=== PATIENT | male | born 1990 | race Caucasian/White ===

== ENCOUNTER 2018-11-13 19:29 | Emergency (ER) | payer SELFPAY ==
[~2018-11-13] VITALS: Ht 180.3 cm; Wt 75.0 kg
--- NOTE | 2018-11-13 19:52 | NUR ---
Pt brought to room 39, c/o generalized malaise thodat, "I think I have heat stroke". Reports feeling "hot" this afternoon while working, also states "I dont drink much water". Pt denies emesis, mild nausea earlier this afternoon, alert, oriented, no s/sx of confusion or weakness noted. Took a "hot shower" at 1830 today in an attempt to drain "wound on my right buttock". Red closed abcess noted to, firm, hot and ntender to palpation. Unable to recal when it first started or how it developed, worsening pain today, denies drainage.
[2018-11-13 20:22] LABS: BASOPHILS # (AUTO) 0.16 x10^3/uL (0-0.1); BASOPHILS % (AUTO) 1 % (0-1); EOSINOPHILS # (AUTO) 0.17 x10^3/uL (0-0.4); EOSINOPHILS % (AUTO) 1 % (1-7); LYMPHOCYTES # (AUTO) 2.24 x10^3/uL (1-3.4); LYMPHOCYTES % (AUTO) 13 % (22-44); MD NO; MEAN PLATELET VOLUME 9.1 fL (7.4-10.4); MONOCYTES % (AUTO) 8 % (2-9); NEUTROPHILS # (AUTO) 13.41 x10^3/uL (1.8-6.8); NEUTROPHILS % (AUTO) 78 % (42-75); PLATELET COUNT 271 x10^3/uL (130-400)
[2018-11-13 20:34] LABS: ALBUMIN 4.1 g/dL (3.4-5.0); ANION GAP 6 mmol/L (5-15); CALCIUM 9.1 mg/dL (8.5-10.1); CHLORIDE 108 mmol/L (98-107)
[2018-11-13 20:39] LABS: ALANINE AMINOTRANSFERASE 26 U/L (12-78); ALKALINE PHOSPHATASE 97 U/L (45-117); BILIRUBIN,TOTAL 0.5 mg/dL (0.2-1.0); TOTAL PROTEIN 7.7 g/dL (6.4-8.2)
--- NOTE | 2018-11-13 20:40 | NUR ---
Waiting on results, pt given PO fuluids, will attempt UA.
[2018-11-13] MEDS ORDERED: ONDANSETRON ODT 4 MG PO ONE (21:00)
--- NOTE | 2018-11-13 21:10 | NUR ---
Pt denies nausea, given PO fluids per request. waiting for results.
[2018-11-13 21:21] LABS: MICROSCOPIC NOT IND
[2018-11-13 21:22] LABS: CULTURE INDICATED? NO
[2018-11-13] MEDS ORDERED: CEFTRIAXONE PMX 1GM/50ML 50 ML IV ONE (21:30)
[2018-11-13] MEDS ORDERED: IBUPROFEN 800 MG TABLET PO STA (21:39)
[2018-11-13] MEDS ORDERED: LIDOCAINE-MPF 1%, 5ML ONE (21:45)
[2018-11-13] MEDS ORDERED: CEFTRIAXONE PMX 1GM/50ML 50 ML ONE (21:45)
[2018-11-13] MEDS ORDERED: IBUPROFEN 800 MG TABLET ONE (21:45)
[2018-11-13] MEDS ORDERED: LIDOCAINE 2%, 20ML SQ ONE (22:00)
--- NOTE | 2018-11-13 22:02 | NUR ---
I/D completed by provider, pt tolerates well, dressing CDI. PIV placed, IV abx infusing, PO ibuprofen given. Pt on phone, denies pain at this time, vitals stable.
[2018-11-13 23:02] VITALS: BP 125/76
--- NOTE | 2018-11-13 23:04 | NUR ---
Pt stable for discharge home, PIV removed, tip intact, site WDL. Vitals stable, exitcare, wound care and new medication reviewed, education provided, verbalizes understanding. Ambulates w/ steady gait to discharge desk.
[2018-11-14 12:47] LABS: CREATININE 1.07 mg/dL (0.7-1.3); RED BLOOD COUNT 4.62 x10^6/uL (4.38-5.82)
[2018-11-14 12:48] LABS: MEAN CORPUSCULAR HEMOGLOBIN 31.3 pg (27.5-34.5); MEAN CORPUSCULAR HGB CONC 33.4 g/dL (33.2-36.2); MEAN CORPUSCULAR VOLUME 93.5 fL (81-97)
== END 2018-11-13 23:09 | disposition home or self-care (01) ==
LOC: EDSEX 19:29 → ED 21:11
DX: A41.9 Sepsis, unspecified organism (principal); L02.31 Cutaneous abscess of buttock
CPT/HCPCS: 10060; 36415; 76881; 80053; 81003; 85025; 87040; 93005; 96365; 99284; J0696; 99406

== ENCOUNTER 2018-11-17 17:14 | Emergency (ER) | payer SELFPAY ==
[~2018-11-17] VITALS: Ht 180.3 cm; Wt 75.3 kg
[2018-11-17 17:24] VITALS: BP 112/73
== END 2018-11-17 17:47 | disposition home or self-care (01) ==
LOC: ED 17:41
DX: L02.33 Carbuncle of buttock (principal)
CPT/HCPCS: 99282